=== PATIENT | male | born 1980 | race Caucasian/White ===

== ENCOUNTER 2022-03-23 20:31 | Emergency (ER) | payer SELFPAY ==
[~2022-03-23] VITALS: Ht 167.6 cm; Wt 81.8 kg
[2022-03-23 20:46] VITALS: BP 131/78; TEMP 97.4
[2022-03-23 21:45] VITALS: PULSE 78
== END 2022-03-23 21:45 | disposition home or self-care (01) ==
LOC: COL.ER 20:31
DX: S43.401A Unspecified sprain of right shoulder joint, initial encounter (principal); V29.9XXA Motorcycle rider (driver) (passenger) injured in unspecified traffic accident, initial encounter; Y93.55 Activity, bike riding; Y92.410 Unspecified street and highway as the place of occurrence of the external cause

== ENCOUNTER 2023-03-27 11:22 | Day surgery (SDC) | payer SELFPAY ==
[~2023-03-27] VITALS: Ht 167.6 cm; Wt 71.0 kg
[~2023-03-27 11:22] MED LIST: AMOXICILLIN 8751 TAB PO; DOXYCYCLINE 10100 MG PO; ULTRAM 50MG TAB50 MG PO
[2023-03-27 12:20] VITALS: BP 114/75; PULSE 98; TEMP 98.5
[2023-03-27] MEDS ORDERED: NORCO 325 MG-51 TAB PO (12:23)
[2023-03-27 12:34] VITALS: BP 114/75; PULSE 98; TEMP 98.5
--- NOTE | 2023-03-27 12:42 | NUR ---
1201-PATIENT ARRIVED [place] [facility] [place], GAIT STEADY. PT NOTED TO BE WEARING SLING TO LEFT ARM ON ARRIVAL. CONSENTS SIGNED AND QUESTIONS INVITED. PT NOTED TO BE TEARFUL DISCUSSING HISTORY LEADING UP TO ADMISSION. ALLERGIES AND MEDICATIONS REVIEWED. PT ASSISTED INTO GOWN. VITAL SIGNS TAKEN, VSS. 18G IV STARTED TO RFA, FLUIDS STARTED. CALL LIGHT AND WARM BLANKET GIVEN, BED IN LOWEST POSITION
[2023-03-27 13:51] LABS: TRICYCLIC ANTIDEPRESS URINE NEGATIVE
[2023-03-27 15:00] VITALS: PULSE 97; TEMP 98.1
--- NOTE | 2023-03-27 15:00 | NUR ---
1500 PATIENT RETURNS TO ROOM 1 VIA CART. PATIENT IS ALERT AND ORIENTED. RESPIRATIONS EVEN AND UNLABORED, ON ROOM AIR. PATIENT HAS ARM SLING PRESENT TO LEFT ARM. DRESSING WAS TAKEN OFF BACK IN THE OR. PATIENT HAD NERVE BLOCK TO LEFT UPPER EXTREMITY. PATIENT STATES THAT HE DOES NOT HAVE ANY FEELING TO HIS LUE. PULSE TO LUE IS PALPABLE. COLOR TO LUE IS NORMAL FOR SKIN TONE. CAP REFILL BRISK. PATIENT REQUESTED WATER. NO DIFFICULTIES SWALLOWING. 1508 GODFREY STEPHENS IN ROOM TO APPLY NEW BANDAGE TO LUE. 1550 THIS NURSE DISCONTINUED IV FROM RIGHT FOREARM WITH NO DIFFICULTIES. IV CATHETER INTACT. 1600 THIS NURSE REVIEWED DISCHARGE INSTRUCTIONS WITH PATIENT AND PATIENT FRIEND. BOTH VERBALIZED UNDERSTANDING. 1620 PATIENT DISCHARGED FROM UNIT VIA WHEELCHAIR IN STABLE CONDITION.
== END 2023-03-27 16:20 | disposition home or self-care (01) ==
LOC: SDCO 11:22
PROVIDERS: Registered Nurse
DX: S41.152A Open bite of left upper arm, initial encounter (principal); W54.0XXA Bitten by dog, initial encounter; Y93.9 Activity, unspecified
CPT/HCPCS: J2250; J2795; J3010; J7120